=== PATIENT | female | born 1990 | race Caucasian/White ===

== ENCOUNTER 2019-04-18 15:43 | Emergency (ER) | payer BC ==
[~2019-04-18] VITALS: Ht 160 cm; Wt 65.0 kg
[2019-04-18] MEDS ORDERED: acetaminophen 325mg tablet PO ONE ×2 (15:55→17:55)
--- NOTE | 2019-04-18 16:02 | NUR ---
PATIENT AMBULATORY TO [facility] WITH C/O COUGH, COLD, CONGESTION, FEVER X 3 DAYS. TEMP 101.7 AT PRESENT. DENIES MEDICAL HISTORY AND ONLY ROUTINE MEDICATION IS ADDERALL FOR ADHD.
--- NOTE | 2019-04-18 16:46 | NUR ---
Dr. Kraft at the bedside to perform lumbar puncture.
[2019-04-18 17:18] LABS: BASOPHILS % (AUTO) 0.1 % (0-1); EOSINOPHILS % (AUTO) 0 % (0-6); HEMATOCRIT 39.7 % (35.0-45.0); HEMOGLOBIN 13.5 g/dl (12.0-16.0); LYMPHOCYTES # (AUTO) 0.2 X10'3 (1.1-4.8); LYMPHOCYTES % (AUTO) 7.3 % (21-51); MEAN CORPUSCULAR HGB CONC 34.1 g/dL (33.0-36.5); MONOCYTES # (AUTO) 0.2 X10'3 (0-0.9); MONOCYTES % (AUTO) 8.1 % (2-12); NEUTROPHILS # (AUTO) 2.5 X10'3 (1.8-7.7); NEUTROPHILS % (AUTO) 84.5 % (42-75); PLATELET COUNT 179 X10'3 (140-440); RED BLOOD COUNT 4.22 X10'6 (4.20-5.60); RED CELL DISTRIBUTION WIDTH 12.8 % (11.5-14.5)
[2019-04-18 17:29] LABS: APPEARANCE,CSF CLEAR; CSF RBC 17 /CU MM (0); CSF SUPERNATANT COLOR COLORLESS; CSF VOLUME 4 ML; CSF WBC CT 1 /CU MM (0-5); TUBE# COUNTED 4
[2019-04-18 17:32] LABS: GLUCOSE,CSF 57 MG/DL (40-75); TOTAL PROTEIN,CSF 24 MG/DL (15-45)
[2019-04-18 17:37] LABS: ALANINE AMINOTRANSFERASE 16 U/L (12-78); ALBUMIN 3.6 G/DL (3.4-5.0); ALBUMIN/GLOBULIN RATIO 1.1 (1.1-1.5); ALKALINE PHOSPHATASE 35 IU/L (46-116); ANION GAP 7 (8-16); ASPARTATE AMINO TRANSFERASE 17 U/L (10-37); BILIRUBIN,TOTAL 0.3 MG/DL (0.1-1.0); BLOOD UREA NITROGEN 10 MG/DL (7-18); BUN/CREATININE RATIO 11.6 (6.6-38.0); CHLORIDE 104 MMOL/L (99-107); CREATININE 0.86 MG/DL (0.40-0.90); GLUCOSE 100 MG/DL (70-104); POTASSIUM 3.7 MMOL/L (3.5-5.1); SODIUM 138 MMOL/L (135-145); TOTAL CARBON DIOXIDE 26.8 MMOL/L (24-32); eGFR 80 ML/MIN
[2019-04-18 18:05] LABS: TOTAL CELLS COUNTED 100
[2019-04-18 18:06] LABS: PLATELET ESTIMATE NORMAL
[2019-04-18] MEDS ORDERED: TAM75C PO (18:24)
[2019-04-18 18:31] VITALS: BP 99/56
== END 2019-04-18 18:35 | disposition home or self-care (01) ==
LOC: ER 15:44
DX: J11.1 Influenza due to unidentified influenza virus with other respiratory manifestations (principal); R51 Headache; R11.2 Nausea with vomiting, unspecified; R50.9 Fever, unspecified; M54.5 Low back pain
CPT/HCPCS: 36415; 62270; 80053; 82945; 84157; 85025; 87015; 87070; 87210; 87502; 87503; 89051; 99284